=== PATIENT | female | born 2000 | race Caucasian/White ===

== ENCOUNTER 2021-09-14 14:23 | Emergency (ER) | payer BC ==
[~2021-09-14] VITALS: Ht 162.6 cm; Wt 100.0 kg
[2021-09-14 14:27] VITALS: TEMP 98.2
[2021-09-14 15:45] VITALS: BP 124/78; PULSE 76
== END 2021-09-14 15:45 | disposition home or self-care (01) ==
LOC: COL.ER 14:23
DX: S71.111A Laceration without foreign body, right thigh, initial encounter (principal); Z28.310 Unvaccinated for COVID-19; W26.0XXA Contact with knife, initial encounter